=== PATIENT | female | born 1955 | race Caucasian/White ===

== ENCOUNTER → 2016-12-10 | Outpatient (CLI) | payer BC ==
--- NOTE | 2016-12-10 11:26 | XR ---
EXAMINATION TYPE: XR KUB DATE OF EXAM: 12/10/2016 CLINICAL DATA: 61 year-old female right flank pain, evaluate for kidney stones, [facility] COMPARISON: 03/31/2016 FINDINGS: Nonobstructive bowel gas pattern. Scattered mild to moderate stool. Numerous bilateral renal calculi are redemonstrated measuring up to 1.1 cm on the right and 8.4 cm on the left. The previous mid left ureteral calculi appear to have cleared from prior exam. There are numerous pelvic phleboliths. However, a 8 mm and 4 mm adjacent calcifications in the right paramedian pelvis are new. IMPRESSION: 1. Numerous bilateral renal calculi. 2. Suspect an 8 mm and 4 mm distal right ureteral calculi.
== END | disposition home or self-care (01) ==
LOC: RADXRMAIN 10:03
PROVIDERS: ATTEND Urology
DX: N20.0 Calculus of kidney (principal)
CPT/HCPCS: 74000

== ENCOUNTER → 2017-02-22 | Outpatient (CLI) | payer BC ==
--- NOTE | 2017-02-22 10:25 | XR ---
EXAMINATION TYPE: XR abdomen 1V DATE OF EXAM: 02/22/2017 10:10 AM CLINICAL HISTORY: Right flank pain and history of nephrolithiasis. TECHNIQUE: Single supine KUB image of the abdomen is obtained. COMPARISON: None. FINDINGS: Numerous left renal calculi and few right renal calculi are redemonstrated (at least 9 on t he left and at least 2 on the right). Multiple the previously seen right renal calculi are obscured b y overlying colonic fecal material. Additionally some of these renal calculi have passed into the pel vis as there are multiple phleboliths but multiple new pelvic calculi. There are at least 3 new right pelvic calculi measuring 1.0 cm, 0.8 cm, and 0.5 cm. The largest conglomeration of stones in the left lower pole measure approximately 8 mm and are unchan ged from the prior. Scattered gas is seen in non-distended small bowel loops. Gas and fecal material is seen in non-distended colon. The lung bases are clear and the osseous structures are intact althou gh there is redemonstration of an S-shaped scoliotic curvature and moderate arthropathy of the lumbar spine. IMPRESSION: 1. New suspected distal right ureteral calculi measuring 1.0 cm, 0.8 cm, and 0.5 cm. 2. Numerous subcentimeter left renal calculi and few remaining right visualized renal calculi. A Yellow message has been communicated to Sebastien Montes MD via the [employer] Critical Result system on 02/22/2017 10:22 AM, Message ID [id number].
== END | disposition home or self-care (01) ==
LOC: RADXRMAIN 09:57
PROVIDERS: ATTEND Physician Assistant
DX: N20.0 Calculus of kidney (principal)
CPT/HCPCS: 74000; 83970

== ENCOUNTER → 2017-03-26 | Outpatient (CLI) | payer BC | END | disposition home or self-care (01) | LOC: LABWHC1 08:39 | PROVIDERS: ATTEND Urology | DX: N20.0 Calculus of kidney (principal) | CPT/HCPCS: 36415 ==

== ENCOUNTER → 2017-07-30 | Outpatient (CLI) | payer BC ==
[2017-07-30 07:56] LABS: Basophils % (A) 0 %; Eosinophils # (A) 0.4 k/uL (0-0.7); Eosinophils % (A) 7 %; HCT 43.1 % (34.0-46.0); HGB 13.7 gm/dL (11.4-16.0); Lymphocytes # (A) 0.9 k/uL (1.0-4.8); Lymphocytes % (A) 18 %; MCH 30.4 pg (25.0-35.0); MCHC 31.7 g/dL (31.0-37.0); Mean Platelet Volume 7.2; Monocytes # (A) 0.4 k/uL (0-1.0); Monocytes % (A) 7 %; Neutrophils # (A) 3.5 k/uL (1.3-7.7); Neutrophils % (A) 67 %; Platelet Count 246 k/uL (150-450); RDW 12.6 % (11.5-15.5); WBC 5.3 k/uL (3.8-10.6)
[2017-07-30 07:57] LABS: Appearance,Urine Clear (Clear); Bilirubin,Urine Negative (Negative); Blood,Urine Negative (Negative); Color,Urine Light Yellow; Glucose,Urine (UA) Negative (Negative); Ketones,Urine Negative (Negative); Leukocyte Esterase,Urine Negative (Negative); Nitrite,Urine Negative (Negative); Protein,Urine Negative (Negative); Specific Gravity,Urine 1.009 (1.001-1.035); Urobilinogen,Urine <2.0 mg/dL (<2.0)
[2017-07-30 08:06] LABS: Albumin 4.2 g/dL (3.5-5.0); Calcium 10.2 mg/dL (8.4-10.2); Potassium 4.8 mmol/L (3.5-5.1); Total Bilirubin 0.7 mg/dL (0.2-1.3); Total Protein 7.5 g/dL (6.3-8.2)
[2017-07-30 08:22] LABS: T4, Free (Free Thyroxine) 1.38 ng/dL (0.78-2.19)
== END | disposition home or self-care (01) ==
LOC: LABWHC1 07:26
PROVIDERS: ATTEND Internal Medicine
DX: N19 Unspecified kidney failure (principal); E03.9 Hypothyroidism, unspecified; N39.0 Urinary tract infection, site not specified; N20.0 Calculus of kidney
CPT/HCPCS: 36415; 80053; 80061; 81003; 83970; 84439; 84443; 85025; 87086

== ENCOUNTER → 2017-12-17 | Outpatient (CLI) | payer BC ==
[2017-12-17 11:01] LABS: Albumin 4.1 g/dL (3.5-5.0); Calcium 9.5 mg/dL (8.4-10.2); Potassium 4.3 mmol/L (3.5-5.1); Total Bilirubin 0.7 mg/dL (0.2-1.3); Total Protein 7.2 g/dL (6.3-8.2)
[2017-12-17 15:52] LABS: Parathyroid Hormone Intact 52.6 pg/mL (14.0-72.0)
[2017-12-17 16:04] LABS: Vitamin D 25 Hydroxy 23.5 ng/mL (30.0-100.0)
== END | disposition home or self-care (01) ==
LOC: LABWHC1 10:03
PROVIDERS: ATTEND Urology
DX: N19 Unspecified kidney failure (principal); N20.0 Calculus of kidney
CPT/HCPCS: 36415; 80053; 82306; 83970

== ENCOUNTER → 2017-12-17 | Outpatient (CLI) | payer BC ==
--- NOTE | 2017-12-17 10:28 | XR ---
EXAMINATION TYPE: XR KUB DATE OF EXAM: 12/17/2017 CLINICAL DATA: 62-year-old female with kidney stone, [facility] COMPARISON: 12/10/2016 FINDINGS: Supine imaging limited for assessment of free intraperitoneal air. Nonobstructive bowel gas pattern with moderate stool burden. Multiple pelvic phlebolith. Numerous bilateral renal calculi are redemonstrated but many are obscured by bowel content. Largest o n the right measures 4 mm and largest on the left measures 6 mm. There are multiple pelvic phleboliths. A couple calcifications in the right hemipelvis seen on 12/10/2016 have cleared. Degenerated scoliosis of the lumbar spine. IMPRESSION: 1. Many of the renal calculi are obscured by bowel content. Smaller calculi are noted measuring up to 4 mm on the right and 6 cm on the left. 2. Moderate stool burden without evidence for obstruction.
== END | disposition home or self-care (01) ==
LOC: RADXRMAIN 09:46
PROVIDERS: ATTEND Urology
DX: N20.0 Calculus of kidney (principal)
CPT/HCPCS: 74018

== ENCOUNTER → 2018-01-07 | Outpatient (CLI) | payer BC ==
[2018-01-07 09:35] LABS: HCT 43.2 % (34.0-46.0); HGB 14.5 gm/dL (11.4-16.0); MCH 31.1 pg (25.0-35.0); MCHC 33.4 g/dL (31.0-37.0); MCV 93.1 fL (80.0-100.0); Mean Platelet Volume 7.6; Platelet Count 246 k/uL (150-450); RBC 4.64 m/uL (3.80-5.40); RDW 12.9 % (11.5-15.5); WBC 6.7 k/uL (3.8-10.6)
[2018-01-07 09:37] LABS: Appearance,Urine Clear (Clear); Bilirubin,Urine Negative (Negative); Blood,Urine Negative (Negative); Color,Urine Light Yellow; Glucose,Urine (UA) Negative (Negative); Ketones,Urine Negative (Negative); Leukocyte Esterase,Urine Negative (Negative); Nitrite,Urine Negative (Negative); Protein,Urine Negative (Negative); Specific Gravity,Urine 1.009 (1.001-1.035); Urobilinogen,Urine <2.0 mg/dL (<2.0)
[2018-01-07 10:26] LABS: Albumin 4.2 g/dL (3.5-5.0); Calcium 9.9 mg/dL (8.4-10.2); Phosphorus 4.2 mg/dL (2.5-4.5); Potassium 4.8 mmol/L (3.5-5.1); Total Bilirubin 0.8 mg/dL (0.2-1.3); Total Protein 7.2 g/dL (6.3-8.2)
== END | disposition home or self-care (01) ==
LOC: LABWHC1 09:03
PROVIDERS: ATTEND Internal Medicine Nephrology
DX: D64.9 Anemia, unspecified (principal); E83.31 Familial hypophosphatemia; N39.0 Urinary tract infection, site not specified
CPT/HCPCS: 36415; 80053; 81003; 84100; 85027

== ENCOUNTER → 2018-04-22 | Outpatient (CLI) | payer BC ==
[2018-04-22 14:04] LABS: Appearance,Urine Clear (Clear); Bilirubin,Urine Negative (Negative); Blood,Urine Negative (Negative); Color,Urine Light Yellow; Glucose,Urine (UA) Negative (Negative); Ketones,Urine Negative (Negative); Leukocyte Esterase,Urine Negative (Negative); Nitrite,Urine Negative (Negative); Protein,Urine Negative (Negative); Specific Gravity,Urine 1.005 (1.001-1.035); Urobilinogen,Urine <2.0 mg/dL (<2.0)
[2018-04-22 14:05] LABS: Basophils % (A) 0 %; Eosinophils # (A) 0.3 k/uL (0-0.7); Eosinophils % (A) 5 %; HCT 44.7 % (34.0-46.0); HGB 14.1 gm/dL (11.4-16.0); Lymphocytes # (A) 1.4 k/uL (1.0-4.8); Lymphocytes % (A) 21 %; MCH 30.1 pg (25.0-35.0); MCHC 31.6 g/dL (31.0-37.0); MCV 95.3 fL (80.0-100.0); Monocytes # (A) 0.3 k/uL (0-1.0); Monocytes % (A) 4 %; Neutrophils # (A) 4.6 k/uL (1.3-7.7); Neutrophils % (A) 68 %; Platelet Count 276 k/uL (150-450); RBC 4.69 m/uL (3.80-5.40); RDW 13.2 % (11.5-15.5); WBC 6.8 k/uL (3.8-10.6)
[2018-04-22 19:09] LABS: Iron Saturation 19.34 (12.00-45.00)
[2018-04-22 19:17] LABS: Vitamin D 25 Hydroxy 19.4 ng/mL (30.0-100.0)
[2018-04-22 19:21] LABS: Albumin 4.2 g/dL (3.80-4.90); Calcium 9.3 mg/dL (8.7-10.3); Magnesium 2.1 mg/dL (1.5-2.4); Phosphorus 3.5 mg/dL (2.4-5.1); Potassium 4.3 mmol/L (3.5-5.5); Uric Acid 6.6 mg/dL (2.9-7.7)
[2018-04-22 19:47] LABS: Parathyroid Hormone Intact 65.9 pg/mL (14.0-72.0)
== END | disposition home or self-care (01) ==
LOC: LABWHC1 12:35
PROVIDERS: ATTEND Internal Medicine Nephrology
DX: N18.3 Chronic kidney disease, stage 3 (moderate) (principal)
CPT/HCPCS: 36415; 80048; 81003; 82040; 82306; 82728; 83540; 83550; 83735; 83970; 84100; 84550; 85025

== ENCOUNTER → 2018-07-07 | Outpatient (CLI) | payer BC ==
--- NOTE | 2018-07-07 12:26 | XR ---
EXAMINATION TYPE: XR KUB DATE OF EXAM: 07/07/2018 10:54 AM CLINICAL HISTORY: Nephrolithiasis. TECHNIQUE: Single supine KUB image of the abdomen is obtained. COMPARISON: None. FINDINGS: Multiple phleboliths within the pelvis appear similar to the prior of 12/17/2017. Additionall y there are multiple bilateral renal calculi the largest on the left again measuring 6 mm, overall un changed and the largest on the right again measuring 4 mm, also overall unchanged. No new calculi are seen along the courses of the ureters. There is a levoscoliotic curvature of the lumbar spine with moderate to severe multilevel degenerativ e change. No dilated bowel. IMPRESSION: Bilateral nephrolithiasis appears similar to the prior of 12/17/2017 as do multiple pelvic phleboliths. No new calculi are seen along the course of ureters.
== END | disposition home or self-care (01) ==
LOC: RADXRMAIN 10:30
PROVIDERS: ATTEND Urology
DX: N20.0 Calculus of kidney (principal)
CPT/HCPCS: 74018

== ENCOUNTER 2018-08-01 23:42 | Emergency (ER) | payer BC ==
[2018-08-01 23:49] VITALS: TEMP 98.4
[2018-08-02] MEDS ORDERED: FAMOTIDINE 20 MG/2 ML VIAL IV STA (00:23)
[2018-08-02] MEDS ORDERED: diphenhydrAMINE 50 MG/ML 1 ML VIAL IVP STA (00:23)
[2018-08-02] MEDS ORDERED: methylPREDNISolone SOD SUCCI 125 MG/2 ML VIAL IV STA (00:24)
--- NOTE | 2018-08-02 00:28 | ED ---
Allergic Reaction HPI - General Chief complaint: Allergic Reaction Stated complaint: Allergic Reaction Time Seen by Provider: 08/01/18 23:53 Source: patient Mode of arrival: ambulatory Limitations: language barrier - History of Present Illness Initial Comments: This patient is 63-year-old woman who presents to be evaluated for tongue swelling. She had noted that it was coming on after about 9:30 PM. She states that she had been doing a lot of cleaning around the house so had exposure to cleaning products and she had also just finished eating. She notes that she has had previous episode of this related to a blood pressure medication area she states that she is not currently taking any blood pressure medication. Patient denies any dyspnea. MD Complaint: allergic reaction -: hour(s) Exposure: food Symptoms: orolingual swelling Severity: moderate Treatment Prior to Arrival: steroids Previous Allergy History: angioedema - Related Data Home Medications Medication Instructions Recorded Confirmed amLODIPine [Norvasc] 5 mg PO DAILY 11/10/15 03/31/16 Albuterol Inhaler [Ventolin Hfa 1 - 2 puff INHALATION RT-Q6H PRN 03/30/16 Inhaler] Levothyroxine Sodium [Synthroid] 137 mcg PO DAILY 03/30/16 03/31/16 Previous Rx's Medication Instructions Recorded Famotidine [Pepcid] 20 mg PO BID #14 tablet 08/02/18 diphenhydrAMINE [Benadryl] 50 mg PO QID #20 capsule 08/02/18 predniSONE 60 mg PO DAILY #30 tab 08/02/18 Allergies Allergy/AdvReac Type Severity Reaction Status Date / Time ciprofloxacin [From Cipro] Allergy Unknown Verified 03/31/16 17:54 hydrochlorothiazide Allergy Swelling Verified 08/01/18 23:49 [From Hyzaar] losartan [From Hyzaar] Allergy Swelling Verified 08/01/18 23:49 Review of Systems ROS Statement: Those systems with pertinent positive or pertinent negative responses have been documented in the HPI. ROS Other: All systems not noted in ROS Statement are negative. Constitutional: Denies: fever ENT: Denies: throat pain, dental pain Respiratory: Denies: cough, dyspnea, stridor Cardiovascular: Denies: chest pain, palpitations Gastrointestinal: Denies: abdominal pain, vomiting, diarrhea Skin: Denies: rash Neurological: Denies: headache, weakness Past Medical History Past Medical History: Hypertension, Thyroid Disorder Additional Past Medical History / Comment(s): kidney stones, History of Any Multi-Drug Resistant Organisms: None Reported Past Surgical History: Orthopedic Surgery Additional Past Surgical History / Comment(s): throidectomy, sinus surgery, kidney stone removal with stent. Past Anesthesia/Blood Transfusion Reactions: No Reported Reaction Past Psychological History: No Psychological Hx Reported Smoking Status: Current some day smoker Past Alcohol Use History: Occasional Past Drug Use History: None Reported - Past Family History Mother Family Medical History: No Reported History General Exam Limitations: language barrier General appearance: alert, in no apparent distress Head exam: Present: atraumatic, normocephalic Eye exam: Present: normal appearance. Absent: scleral icterus, conjunctival injection ENT exam: Present: mucous membranes moist, other (There is diffuse swelling of the tongue) Neck exam: Present: normal inspection, full ROM Respiratory exam: Present: normal lung sounds bilaterally. Absent: respiratory distress, wheezes, rales, rhonchi, stridor Cardiovascular Exam: Present: regular rate, normal rhythm, normal heart sounds. Absent: systolic murmur, diastolic murmur, rubs, gallop GI/Abdominal exam: Present: soft. Absent: distended, tenderness, guarding, rebound, mass Extremities exam: Present: normal inspection, normal capillary refill. Absent: pedal edema, calf tenderness Back exam: Present: normal inspection. Absent: CVA tenderness (R), CVA tenderness (L) Neurological exam: Present: alert Skin exam: Present: warm, dry, intact, normal color. Absent: rash Course Vital Signs 08/01/18 08/02/18 08/02/18 23:44 00:52 02:59 Temperature 98.4 F Pulse Rate 87 77 80 Respiratory 18 20 20 Rate Blood Pressure 187/102 202/114 166/105 O2 Sat by Pulse 98 97 97 Oximetry 08/02/18 03:45 Temperature Pulse Rate 87 Respiratory 18 Rate Blood Pressure 157/97 O2 Sat by Pulse 97 Oximetry Medical Decision Making - Medical Decision Making Patient is 63-year-old woman presenting with bilateral edema of the tongue. She is started on treatment with antihistamines and steroids. She is observed in the emergency department until there is good improvement. The patient has not returned baseline but she is feeling well and would like to go home. We'll continue treatment as outpatient. Discussed appropriate further care and follow -up as well as return parameters. - Lab Data Result diagrams: 08/02/18 00:05 08/02/18 00:05 Lab Results 08/02/18 08/02/18 Range/Units 00:05 00:05 WBC 9.9 (3.8-10.6) k/uL RBC 4.70 (3.80-5.40) m/uL Hgb 14.6 (11.4-16.0) gm/dL Hct 44.4 (34.0-46.0) % MCV 94.4 (80.0-100.0) fL MCH 31.1 (25.0-35.0) pg MCHC 32.9 (31.0-37.0) g/dL RDW 13.2 (11.5-15.5) % Plt Count 273 (150-450) k/uL Neutrophils % 79 % Lymphocytes % 12 % Monocytes % 4 % Eosinophils % 3 % Basophils % 0 % Neutrophils # 7.8 H (1.3-7.7) k/uL Lymphocytes # 1.1 (1.0-4.8) k/uL Monocytes # 0.4 (0-1.0) k/uL Eosinophils # 0.3 (0-0.7) k/uL Basophils # 0.0 (0-0.2) k/uL Sodium 140 (137-145) mmol/L Potassium 3.9 (3.5-5.1) mmol/L Chloride 107 (98-107) mmol/L Carbon Dioxide 25 (22-30) mmol/L Anion Gap 8 mmol/L BUN 25 H (7-17) mg/dL Creatinine 1.49 H (0.52-1.04) mg/dL Est GFR (CKD-EPI)AfAm 43 (>60 ml/min/1.73 sqM) Est GFR (CKD-EPI)NonAf 37 (>60 ml/min/1.73 sqM) Glucose 116 H (74-99) mg/dL Calcium 9.4 (8.4-10.2) mg/dL Disposition Clinical Impression: Allergic reaction, Angioedema Disposition: HOME SELF-CARE Condition: Good Instructions (If sedation given, give patient instructions): Angioedema (ED) Prescriptions: diphenhydrAMINE [Benadryl] 50 mg PO QID #20 capsule Famotidine [Pepcid] 20 mg PO BID #14 tablet predniSONE 60 mg PO DAILY #30 tab Is patient prescribed a controlled substance at d/c from ED?: No Referrals: Yessica Machado MD [Primary Care Provider] - 1-2 days
[2018-08-02 01:00] LABS: Basophils % (A) 0 %; Eosinophils # (A) 0.3 k/uL (0-0.7); Eosinophils % (A) 3 %; HCT 44.4 % (34.0-46.0); HGB 14.6 gm/dL (11.4-16.0); Lymphocytes # (A) 1.1 k/uL (1.0-4.8); Lymphocytes % (A) 12 %; MCH 31.1 pg (25.0-35.0); MCHC 32.9 g/dL (31.0-37.0); MCV 94.4 fL (80.0-100.0); Mean Platelet Volume 7.7; Monocytes # (A) 0.4 k/uL (0-1.0); Monocytes % (A) 4 %; Neutrophils # (A) 7.8 k/uL (1.3-7.7); Neutrophils % (A) 79 %; Platelet Count 273 k/uL (150-450); RDW 13.2 % (11.5-15.5); WBC 9.9 k/uL (3.8-10.6)
[2018-08-02 01:18] LABS: Calcium 9.4 mg/dL (8.4-10.2); Potassium 3.9 mmol/L (3.5-5.1)
[2018-08-02] MEDS ORDERED: cloNIDine HCL 0.2 MG TAB PO STA (03:00)
[2018-08-02 03:46] VITALS: BP 157/97; PULSE 87; RESP 18
== END 2018-08-02 03:53 | disposition home or self-care (01) ==
LOC: EC 23:42
DX: T78.3XXA Angioneurotic edema, initial encounter (principal); I10 Essential (primary) hypertension; E07.9 Disorder of thyroid, unspecified; F17.200 Nicotine dependence, unspecified, uncomplicated; Z79.890 Hormone replacement therapy; Z79.899 Other long term (current) drug therapy; Z88.1 Allergy status to other antibiotic agents; Z88.8 Allergy status to other drugs, medicaments and biological substances
CPT/HCPCS: 36415; 80048; 85025; 99284; 96374; 96375 ×2; J1200; J2930

== ENCOUNTER → 2020-02-22 | Outpatient (CLI) | payer BC ==
[2020-02-22 13:46] LABS: Basophils % (A) 1 %; Eosinophils # (A) 0.3 k/uL (0-0.7); Eosinophils % (A) 4 %; HCT 44.8 % (34.0-46.0); HGB 14.4 gm/dL (11.4-16.0); Lymphocytes # (A) 1.3 k/uL (1.0-4.8); Lymphocytes % (A) 14 %; MCH 30.7 pg (25.0-35.0); MCHC 32.1 g/dL (31.0-37.0); MCV 95.5 fL (80.0-100.0); Mean Platelet Volume 8.4; Monocytes # (A) 0.4 k/uL (0-1.0); Monocytes % (A) 5 %; Neutrophils % (A) 76 %; Platelet Count 232 k/uL (150-450); RBC 4.69 m/uL (3.80-5.40); RDW 12.9 % (11.5-15.5); WBC 9.2 k/uL (3.8-10.6)
[2020-02-22 18:50] LABS: African American GFR (CKD) 54.9 (60.0-200.0); Albumin 4.2 g/dL (3.80-4.90); Albumin/Globulin Ratio 1.56 (1.60-3.17); Anion Gap 7.9 mmol/L (4.00-12.00); BUN/Creat Ratio 16.67 Ratio (12.00-20.00); Calcium 9.9 mg/dL (8.7-10.3); Carbon Dioxide 28.1 mmol/L (21.6-31.8); Chol/HDL Ratio 2.61; Globulin 2.7 g/dL (1.6-3.3); LDL Cholesterol,Calculated 89.2 mg/dL (0.0-131.0); Non-African American GFR(CKD) 47.4 (60.0-200.0); Potassium 4.9 mmol/L (3.5-5.5); Total Bilirubin 0.6 mg/dL (0.2-1.2); Total Protein 6.9 g/dL (6.2-8.2); VLDL Calculation 23.8 mg/dL (5.00-40.00)
[2020-02-22 18:57] LABS: T4, Free (Free Thyroxine) 1.3 ng/dL (0.80-1.80)
== END | disposition home or self-care (01) ==
LOC: LABWHC1 11:38
PROVIDERS: ATTEND Internal Medicine
DX: Z00.00 Encounter for general adult medical examination without abnormal findings (principal); E78.5 Hyperlipidemia, unspecified; I10 Essential (primary) hypertension
CPT/HCPCS: 36415; 80053; 80061; 82306; 84439; 84443; 85025